=== PATIENT | female | born 1970 | race African-American/Black ===

== ENCOUNTER 2017-11-15 18:30 | Emergency (ER) | payer MEDICAID ==
[~2017-11-15] VITALS: Ht 162.6 cm; Wt 97.5 kg
[2017-11-15] MEDS ORDERED: DULO30CA2 PO (18:43)
[2017-11-15 20:42] LABS: BASOPHILS % (AUTO) 0.6 % (0.0-2.0); EOSINOPHILS # (AUTO) 0.2 K/uL (0.0-0.7); EOSINOPHILS % (AUTO) 2.6 % (0.0-7.0); HEMATOCRIT 38.6 % (31.2-41.9); HEMOGLOBIN 12.8 g/dL (10.9-14.3); LYMPHOCYTES # (AUTO) 2.2 K/uL (20.0-40.0); LYMPHOCYTES % (AUTO) 30.4 % (20.5-51.5); MEAN CORPUSCULAR HEMOGLOBIN 27.6 uug (24.7-32.8); MEAN CORPUSCULAR HGB CONC 33 g/dL (32.3-35.6); MEAN CORPUSCULAR VOLUME 83.2 fL (75.5-95.3); MONOCYTES # (AUTO) 0.3 K/uL (2.0-10.0); MONOCYTES % (AUTO) 4.6 % (0.0-11.0); NEUTROPHILS # (AUTO) 4.4 K/uL (1.8-8.9); NEUTROPHILS % (AUTO) 61.8 % (38.5-71.5); PLATELET COUNT (AUTO) 349 K/uL (179-408); RED BLOOD CELL COUNT(AUTO) 4.64 MIL/uL (3.63-4.92); WHITE BLOOD COUNT (AUTO) 7.1 K/uL (3.8-11.8)
[2017-11-15 20:43] LABS: CREATININE 0.9 mg/dL (0.6-1.3); POTASSIUM 4.4 mmol/L (3.5-5.1)
[2017-11-15 20:49] LABS: BILIRUBIN,DIRECT 0.1 mg/dL (0.0-0.2); BILIRUBIN,TOTAL 0.3 mg/dL (0.2-1.0); TOTAL PROTEIN, SERUM 7.9 g/dL (6.4-8.2)
--- NOTE | 2017-11-15 22:42 | NUR ---
Patient discharged to home in stable conditon. Written and verbal after care instructions given. Patient verbalizes understanding of instructions.
== END 2017-11-15 22:43 | disposition home or self-care (01) ==
LOC: ER 18:31
DX: N92.0 Excessive and frequent menstruation with regular cycle (principal); G47.00 Insomnia, unspecified; F17.200 Nicotine dependence, unspecified, uncomplicated; D25.9 Leiomyoma of uterus, unspecified; Z90.49 Acquired absence of other specified parts of digestive tract
CPT/HCPCS: 36415; 74176; 76856; 80048; 80076; 83690; 84484; 84703; 85025; 99285; A4663; 70030-TC

== ENCOUNTER 2018-08-07 11:14 | Emergency (ER) | payer BC, MEDICAID ==
[~2018-08-07] VITALS: Ht 162.6 cm; Wt 99.8 kg
[~2018-08-07 11:14] MED LIST: DULO30CA2 PO
--- NOTE | 2018-08-07 11:54 | NUR ---
Patient is tolerating the R eye irrigation in progress@this time.
--- NOTE | 2018-08-07 12:31 | NUR ---
Patient discharged to home in stable conditon. Written and verbal after care instructions given to patient. Patient verbalizes understanding of instructions.
== END 2018-08-07 12:33 | disposition home or self-care (01) ==
LOC: ER 11:17
DX: H10.213 Acute toxic conjunctivitis, bilateral (principal); F17.200 Nicotine dependence, unspecified, uncomplicated
CPT/HCPCS: A4663; J7030

== ENCOUNTER 2018-08-09 21:24 | Emergency (ER) | payer BC ==
[~2018-08-09] VITALS: Ht 162.6 cm; Wt 95.7 kg
[2018-08-09] MEDS ORDERED: GENT5DRO30 OP (21:35)
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
[2018-08-09] MEDS ORDERED: FLUORESCEIN SODIUM 1 MG STRIP ONE (22:39)
[2018-08-09] MEDS ORDERED: TETRACAINE HCL 0.5% OPHT DROP 2 ML BOTTLE ONE (22:39)
--- NOTE | 2018-08-09 22:40 | NUR ---
BEAU MANUEL at bedside for patient evaluation.
[2018-08-09] MEDS: FLUORESCEIN SODIUM 1 MG STRIP OP ONE (22:43)
[2018-08-09] MEDS: TETRACAINE HCL 0.5% OPHT DROP 2 ML BOTTLE OP ONE (22:43)
--- NOTE | 2018-08-09 22:59 | NUR ---
Patient discharged to home in stable conditon. Written and verbal after care instructions given. Patient verbalizes understanding of instructions. Ambulated from ER with stable gait. All belongings with patient.
[2018-08-09 23:00] VITALS: BP 137/85
== END 2018-08-09 23:01 | disposition home or self-care (01) ==
LOC: ER 21:30
DX: H10.9 Unspecified conjunctivitis (principal); F17.200 Nicotine dependence, unspecified, uncomplicated
CPT/HCPCS: A4663

== ENCOUNTER 2019-09-17 21:40 | Emergency (ER) | payer MEDICAID ==
[~2019-09-17] VITALS: Ht 162.6 cm; Wt 96.2 kg
[~2019-09-17 21:40] MED LIST changes: +GENT5DRO30 OP
[2019-09-17] MEDS ORDERED: FLUORESCEIN SODIUM 1 MG STRIP ONE (22:06)
[2019-09-17] MEDS ORDERED: PROPARACAINE 0.5% OPHT DROP 15 ML BOTTLE ONE (22:06)
[2019-09-17] MEDS ORDERED: FLUORESCEIN SODIUM 1 MG STRIP OP ONE (22:15)
[2019-09-17] MEDS ORDERED: SULFACETAMIDE SOD 10% OPHT DR 15 ML BOTTLE OP ONE (22:15)
[2019-09-17] MEDS ORDERED: PROPARACAINE 0.5% OPHT DROP 15 ML BOTTLE OP ONE (22:15)
[2019-09-17] MEDS ORDERED: SULFACETAMIDE SOD 10% OPHT DR 15 ML BOTTLE ONE (22:19)
--- NOTE | 2019-09-17 22:29 | NUR ---
Left eye patch in place per MD orders, instructed not to drive. Patient discharged to home in stable conditon. Written and verbal after care instructions given. Patient verbalizes understanding of instructions. No acute distress
[2019-09-17 22:30] VITALS: BP 128/74
== END 2019-09-17 22:44 | disposition home or self-care (01) ==
LOC: ER 21:40
DX: S05.02XA Injury of conjunctiva and corneal abrasion without foreign body, left eye, initial encounter (principal); F32.9 Major depressive disorder, single episode, unspecified; F41.9 Anxiety disorder, unspecified; F17.200 Nicotine dependence, unspecified, uncomplicated; Z79.899 Other long term (current) drug therapy; X58.XXXA Exposure to other specified factors, initial encounter; Y93.89 Activity, other specified; Y92.89 Other specified places as the place of occurrence of the external cause; Y99.8 Other external cause status
CPT/HCPCS: A4663

== ENCOUNTER 2019-10-01 22:12 | Emergency (ER) | payer BC, MEDICAID ==
[~2019-10-01] VITALS: Ht 162.6 cm; Wt 97.5 kg
[2019-10-01] MEDS ORDERED: FLUORESCEIN SODIUM 1 MG STRIP ONE (22:35)
--- NOTE | 2019-10-01 22:40 | NUR ---
Dr. Das at bedside for MSE.
[2019-10-01] MEDS ORDERED: SULFACETAMIDE SOD 10% OPHT DR 15 ML BOTTLE OP ONE (22:45)
[2019-10-01] MEDS ORDERED: FLUORESCEIN SODIUM 1 MG STRIP OP ONE (22:45)
[2019-10-01] MEDS ORDERED: SULFACETAMIDE SOD 10% OPHT DR 15 ML BOTTLE ONE (22:49)
--- NOTE | 2019-10-01 23:04 | NUR ---
Patient discharged to home in stable conditon. Written and verbal after care instructions given. Patient verbalizes understanding of instructions. Pt ambulated out of ER with steady gait, no acute signs of distress, VSS, all belongings taken.
[2019-10-01 23:05] VITALS: BP 149/87
== END 2019-10-01 23:05 | disposition home or self-care (01) ==
LOC: ER 22:18
DX: S05.02XA Injury of conjunctiva and corneal abrasion without foreign body, left eye, initial encounter (principal); F32.9 Major depressive disorder, single episode, unspecified; F41.9 Anxiety disorder, unspecified; F17.200 Nicotine dependence, unspecified, uncomplicated; X58.XXXA Exposure to other specified factors, initial encounter; Y93.89 Activity, other specified; Y92.89 Other specified places as the place of occurrence of the external cause; Y99.8 Other external cause status
CPT/HCPCS: A4663

== ENCOUNTER 2020-01-06 14:10 | Emergency (ER) | payer BC, MEDICAID ==
[~2020-01-06] VITALS: Ht 157.5 cm; Wt 81.6 kg
[2020-01-06] MEDS ORDERED: FLUORESCEIN SODIUM 1 MG STRIP OP ONE (14:30)
[2020-01-06] MEDS ORDERED: FLUORESCEIN SODIUM 1 MG STRIP ONE (14:32)
[2020-01-06] MEDS ORDERED: SULFACETAMIDE SOD 10% OPHT DR 15 ML BOTTLE ONE (14:44)
[2020-01-06] MEDS ORDERED: SULFACETAMIDE SOD 10% OPHT DR 15 ML BOTTLE OP ONE (14:45)
[2020-01-06 15:30] LABS: *BILIRUBIN,URIN NEGATIVE (NEGATIVE); *CLARITY,URINE CLEAR (CLEAR); *COLOR,URINE YELLOW (YELLOW); *KETONES,URINE NEGATIVE (NEGATIVE); *UROBILINOGEN,URINE 0.2 E.U./dl (NORMAL); LEUKOCYTE ESTERASE ,URINE NEGATIVE (NEGATIVE); NITRITE, URINE NEGATIVE (NEGATIVE); PH,URINE 5.5 (5.0-8.0); UGLUCOSE NEGATIVE (NEGATIVE)
[2020-01-06 15:33] LABS: *BLOOD, URINE TRACE (NEGATIVE)
--- NOTE | 2020-01-06 15:35 | NUR ---
DR COE MADE PATIENT AWARE FOR TEST RESULTS. WILL DC HOME
--- NOTE | 2020-01-06 15:39 | NUR ---
Patient discharged to home in stable condition. Written and verbal after care instructions given. Patient verbalizes understanding of instructions.
[2020-01-06 15:41] VITALS: BP 118/75
[2020-01-06 15:42] LABS: BACTERIA,URINE 1+ /HPF (NONE SEEN); SQUAMOUS EPITHELIAL CELL,UR MANY /HPF (NONE SEEN); WBC,URINE NONE SEEN /HPF (0-3)
== END 2020-01-06 15:47 | disposition home or self-care (01) ==
LOC: ER 14:10
DX: S05.02XA Injury of conjunctiva and corneal abrasion without foreign body, left eye, initial encounter (principal); R30.0 Dysuria; R35.0 Frequency of micturition; R39.15 Urgency of urination; F17.200 Nicotine dependence, unspecified, uncomplicated; X58.XXXA Exposure to other specified factors, initial encounter; Y93.89 Activity, other specified; Y92.89 Other specified places as the place of occurrence of the external cause; Y99.8 Other external cause status
CPT/HCPCS: A4663

== ENCOUNTER 2020-07-24 10:49 | Emergency (ER) | payer MEDICAID ==
[~2020-07-24] VITALS: Ht 162.6 cm; Wt 95.3 kg
--- NOTE | 2020-07-24 11:14 | NUR ---
"Can I look for my phone 1st before the all the tests? If it is not here, I need to leave & look for it." per patient's verbalization. Patient was given explanation re: importance of all these ordered tests with time sensitivity for some of the tests.
[2020-07-24 11:54] LABS: BASOPHILS # (AUTO) 0.1 K/uL (0.0-8.0); BASOPHILS % (AUTO) 0.9 % (0.0-2.0); EOSINOPHILS # (AUTO) 0.2 K/uL (0.0-0.7); EOSINOPHILS % (AUTO) 2.7 % (0.0-7.0); HEMATOCRIT 44.6 % (31.2-41.9); HEMOGLOBIN 14.9 g/dL (10.9-14.3); LYMPHOCYTES # (AUTO) 2.4 K/uL (20.0-40.0); LYMPHOCYTES % (AUTO) 26.8 % (20.5-51.5); MEAN CORPUSCULAR HEMOGLOBIN 28.1 uug (24.7-32.8); MEAN CORPUSCULAR HGB CONC 33 g/dL (32.3-35.6); MEAN CORPUSCULAR VOLUME 84.2 fL (75.5-95.3); MONOCYTES # (AUTO) 0.4 K/uL (2.0-10.0); MONOCYTES % (AUTO) 4.5 % (0.0-11.0); NEUTROPHILS # (AUTO) 5.9 K/uL (1.8-8.9); NEUTROPHILS % (AUTO) 65.1 % (38.5-71.5); PLATELET COUNT (AUTO) 344 K/uL (179-408); WHITE BLOOD COUNT (AUTO) 9.1 K/uL (3.8-11.8)
[2020-07-24 12:00] LABS: *BILIRUBIN,URIN NEGATIVE (NEGATIVE); *BLOOD, URINE 2+ (NEGATIVE); *CLARITY,URINE SLIGHTLY CLOUDY (CLEAR); *COLOR,URINE YELLOW (YELLOW); *KETONES,URINE NEGATIVE (NEGATIVE); *UROBILINOGEN,URINE 0.2 E.U./dl (NORMAL); LEUKOCYTE ESTERASE ,URINE NEGATIVE (NEGATIVE); NITRITE, URINE NEGATIVE (NEGATIVE); UGLUCOSE NEGATIVE (NEGATIVE)
[2020-07-24 12:01] LABS: CARBON DIOXIDE 25 mmol/L (21-32); CHLORIDE 100 mmol/L (98-107); GLUCOSE 154 mg/dL (74-106); POTASSIUM 3.4 mmol/L (3.5-5.1); UREA NITROGEN, BLOOD 16 mg/dL (7-18)
[2020-07-24 12:02] LABS: *URINE HCG, QUAL NEG (NEGATIVE)
[2020-07-24 12:05] LABS: ALANINE AMINOTRANSFERASE 30 U/L (14-59); ALKALINE PHOSPHATASE 85 U/L (50-136); ASPARTATE AMINOTRANSFERASE 7 U/L (15-37); BILIRUBIN,DIRECT 0.1 mg/dL (0.0-0.2); BILIRUBIN,TOTAL 0.4 mg/dL (0.2-1.0); TOTAL PROTEIN, SERUM 8.1 g/dL (6.4-8.2)
[2020-07-24 12:07] LABS: ETHANOL < 3 MG/DL (0-0)
[2020-07-24 12:12] LABS: *AMPHETAMINE, URINE NEGATIVE (NEGATIVE); *BARBITURATE, URINE NEGATIVE (NEGATIVE); *CANNABINOID, URINE NEGATIVE (NEGATIVE); *COCCAINE, URINE NEGATIVE (NEGATIVE); *OPIATE, URINE NEGATIVE (NEGATIVE); *PHENCYCLIDINE SCREEN,URINE NEGATIVE (NEGATIVE)
--- NOTE | 2020-07-24 12:24 | NUR ---
Patient is resting comfortably on gurney, NAD. PATIENT IS PAIN FREE AT THIS TIME.
[2020-07-24] MEDS ORDERED: POTASSIUM CHLORIDE 20 MEQ TAB.PRT.SR PO ONE (12:30)
[2020-07-24] MEDS ORDERED: POTASSIUM CHLORIDE 20 MEQ TAB.PRT.SR ONE (12:36)
--- NOTE | 2020-07-24 12:43 | NUR ---
Copies of all tests' results were given to patient. Patient discharged to home in stable condition & steady gait. Written and verbal after care instructions given to patient. Patient verbalized understanding & compliance of instructions. Stressed follow up with primary doctor and night supervisor or return to ER for worsening s/s.
[2020-07-24 16:44] LABS: BACTERIA,URINE RARE /HPF (NONE SEEN); SQUAMOUS EPITHELIAL CELL,UR FEW /HPF (NONE SEEN); WBC,URINE 0-3 /HPF (0-3)
== END 2020-07-24 12:47 | disposition home or self-care (01) ==
LOC: ER 10:49
DX: R05 Cough (principal); R53.1 Weakness; E87.6 Hypokalemia; R73.9 Hyperglycemia, unspecified; Z20.828 Contact with and (suspected) exposure to other viral communicable diseases; F17.290 Nicotine dependence, other tobacco product, uncomplicated
CPT/HCPCS: 36415; 71045; 80048; 80076; 80307 ×2; 81001; 84484; 84703; 85025; 87086; 93005; 99285; 99406; U0003; 70030-TC; A4663

== ENCOUNTER 2020-10-14 21:42 | Emergency (ER) | payer BC, MEDICAID ==
[~2020-10-14] VITALS: Ht 162.6 cm; Wt 97.6 kg
--- NOTE | 2020-10-14 23:28 | NUR ---
Patient walked into ER with steady gait c/o left eye pain with blurred vision. Patient states she applied facial lotion yesterday that might irritated her eye. Denies trauma to eyes.
--- NOTE | 2020-10-14 23:30 | NUR ---
DR Koehler into eval patient.
[2020-10-14] MEDS ORDERED: SODIUM/POT/SOD CHL OPHT WASH 120 ML BOTTLE OP ONE (23:45)
[2020-10-14] MEDS ORDERED: TETRACAINE HCL 0.5% OPHT DROP 2 ML BOTTLE OP ONE (23:45)
[2020-10-14] MEDS ORDERED: TETRACAINE HCL 0.5% OPHT DROP 2 ML BOTTLE ONE (23:54)
--- NOTE | 2020-10-15 00:07 | NUR ---
Patient discharged to home in stable condition. Written and verbal after care instructions given. Patient verbalizes understanding of instructions. Stressed follow up or return to ER for worsening s/s.
[2020-10-15 00:08] VITALS: BP 138/84
== END 2020-10-15 00:08 | disposition home or self-care (01) ==
LOC: ER 21:44
DX: H57.13 Ocular pain, bilateral (principal)
CPT/HCPCS: A4217; A4663

== ENCOUNTER 2021-01-07 20:19 | Emergency (ER) | payer BC ==
[~2021-01-07] VITALS: Ht 165.1 cm; Wt 97.1 kg
[2021-01-07] MEDS ORDERED: TETRACAINE HCL 0.5% OPHT DROP 2 ML BOTTLE OP ONE (20:45)
[2021-01-07] MEDS ORDERED: FLUORESCEIN SODIUM 1 MG STRIP OP ONE (20:45)
[2021-01-07] MEDS ORDERED: TETRACAINE HCL 0.5% OPHT DROP 2 ML BOTTLE ONE (20:46)
[2021-01-07] MEDS ORDERED: FLUORESCEIN SODIUM 1 MG STRIP ONE (20:47)
[2021-01-07] MEDS ORDERED: ACETAMINOPHEN ES 500 MG TABLET PO ONE (21:00)
[2021-01-07] MEDS ORDERED: ACETAMINOPHEN ES 500 MG TABLET ONE (21:05)
[2021-01-07 21:08] VITALS: BP 148/60
== END 2021-01-07 21:09 | disposition home or self-care (01) ==
LOC: ER 20:19
DX: S05.91XA Unspecified injury of right eye and orbit, initial encounter (principal); X58.XXXA Exposure to other specified factors, initial encounter; Y93.89 Activity, other specified; Y92.89 Other specified places as the place of occurrence of the external cause
CPT/HCPCS: A4663; A9150

== ENCOUNTER → 2021-07-13 16:00 | Emergency (ER) | payer BC, MEDICAID | END | disposition left against medical advice (07) | LOC: ER 16:00 | DX: Z53.21 Procedure and treatment not carried out due to patient leaving prior to being seen by health care provider (principal) ==

== ENCOUNTER 2021-08-02 15:24 | Emergency (ER) | payer MEDICAID ==
[~2021-08-02] VITALS: Ht 165.1 cm; Wt 95.3 kg
--- NOTE | 2021-08-02 15:30 | NUR ---
at bedside for assessment
[2021-08-02 16:18] LABS: *BILIRUBIN,URIN NEGATIVE (NEGATIVE); *BLOOD, URINE 2+ (NEGATIVE); *CLARITY,URINE CLEAR (CLEAR); *COLOR,URINE YELLOW (YELLOW); *KETONES,URINE NEGATIVE (NEGATIVE); LEUKOCYTE ESTERASE ,URINE NEGATIVE (NEGATIVE); NITRITE, URINE NEGATIVE (NEGATIVE); UGLUCOSE NEGATIVE (NEGATIVE)
[2021-08-02 16:27] LABS: BACTERIA,URINE NONE SEEN /HPF (NONE SEEN); SQUAMOUS EPITHELIAL CELL,UR FEW /HPF (NONE SEEN); WBC,URINE 0-3 /HPF (0-3)
[2021-08-02] MEDS ORDERED: PHEN-705 PO (16:33)
[2021-08-02] MEDS ORDERED: CEPH500C2 PO (16:33)
[2021-08-02 17:00] VITALS: BP 135/90
== END 2021-08-02 17:01 | disposition home or self-care (01) ==
LOC: ER 15:26
DX: R30.0 Dysuria (principal); F29 Unspecified psychosis not due to a substance or known physiological condition; Z87.440 Personal history of urinary (tract) infections
CPT/HCPCS: 87086; A4663